=== PATIENT | female | born 1950 | race Caucasian/White ===

== ENCOUNTER 2022-05-25 06:05 | Observation (INO) ==
--- NOTE | 2022-05-03 09:10 | PAT Medication Instructions ---
Medication Instructions Date of Service May 03, 2022 Home Medications amiodarone 200 mg tablet 100 mg PO 3XWK aspirin 81 mg tablet 81 mg PO QAM Hair,Skin and Nails tablet) 1 tab PO QAM nabumetone 750 mg tablet (Relafen) 750 mg PO QAM naratriptan 2.5 mg tablet 2.5 mg PO Q4H PRN Migraine Headache omega-3 fatty acids 1,250 mg PO QAM simvastatin 20 mg tablet (Zocor) 20 mg PO QAM Continue as directed amiodarone 200 mg tablet 100 mg PO 3XWK ASK your surgeon for instructions nabumetone 750 mg tablet (Relafen) 750 mg PO QAM STOP taking 2 weeks before surgery (or as soon as possible if surgery is within 2 weeks) Hair,Skin and Nails tablet) 1 tab PO QAM omega-3 fatty acids 1,250 mg PO QAM Take morning of surgery With a small sip of water, OTHERWISE NOTHING TO EAT OR DRINK AFTER MIDNIGHT: aspirin 81 mg tablet 81 mg PO QAM (continue as normal unless told otherwise by surgeon) naratriptan 2.5 mg tablet 2.5 mg PO Q4H PRN Migraine Headache (if needed) simvastatin 20 mg tablet (Zocor) 20 mg PO QAM Take evening before surgery naratriptan 2.5 mg tablet 2.5 mg PO Q4H PRN Migraine Headache (if needed) Other Notes If you have any questions please call us at [phone] or [phone] or [phone] or [phone]
--- NOTE | 2022-05-05 14:49 | Anesthesiology Consultation ---
Date of Service May 05, 2022 Assessment & Plan (1) Encounter for pre-operative examination: Chart Review Chart Review: Acceptable Risk for Surgery (pending cardio clearance (05/10) with response to preop EKG and PCP clearance (05/18) with response to CXR ) and Patient seen in Pre Admission Testing Awaiting cardio clearance (Dr. Abraham) (05/10/22)- will send optimization note re: bigeminy to cardio along with preop EKG Awaiting PCP clearance (05/18/22) (did send optimization note to PCP re: CXR) Per patient- tolerates Toradol well Per PAT appt on 02/03/22, patient denies any recent travel or large group activi ties. No known Covid positive exposures or Covid related symptoms. No known Covid infection in the past 90 days. Will leave to surgeon's discretion if preop Covid testing needed. Pt is fully vaccinated for Covid. Educated on importance of using Covid precautions one week prior to surgery Teaching & Discussion Pre-Anesthesia Teaching/Discussion Notes: Instructed NPO after midnight before surgery,except medications with 15 cc of water. Medication instructions provided according to the PAT guidelines. History Surgery Operation Date: 05/25/22 08:50 Proposed Procedures p Left Total Knee Arthroplasty - Tree Uribe MD Height/Weight Height: 5 ft 8 in Weight: 75.2 kg Allergies Allergy/AdvReac Type Severity Reaction Status Date / Time acetaminophen [From Percocet] AdvReac Nausea Verified 05/02/22 15:01 oxycodone [From Percocet] AdvReac Nausea Verified 05/02/22 15:01 Medications Home Medications Medication Instructions Recorded Confirmed Last Taken amiodarone 200 mg tablet 100 mg PO 3XWK 05/02/22 05/02/22 Unknown aspirin 81 mg tablet 81 mg PO QAM 05/02/22 05/02/22 Unknown multivitamin with minerals 1 tab PO QAM 05/02/22 05/02/22 Unknown (Hair,Skin and Nails tablet) nabumetone 750 mg tablet (Relafen) 750 mg PO QAM 05/02/22 05/02/22 Unknown naratriptan 2.5 mg tablet 2.5 mg PO Q4H PRN Migraine Headache 05/02/22 05/02/22 Unknown omega-3 fatty acids 1,250 mg PO QAM 05/02/22 05/02/22 Unknown simvastatin 20 mg tablet (Zocor) 20 mg PO QAM 05/02/22 05/02/22 Unknown Past Medical History Medical History History of atrial fibrillation Remote hx 8 years ago (during hospitalization/PE) No known recurrence, Follows with Dr. Abraham q 2 years History of pulmonary embolism 8 years ago (following varicose vein laser treatment) - treated with AC x 1 year HLD (hyperlipidemia) Migraines Osteoarthritis Exercise / Class Metabolic Activity II 4-5 Yardwork/Stairs/Walk up hill (one flight of stairs - no chest pain or SOB ) Past Family History Family History Other No family history of adverse response to anesthesia Past Surgical History Surgical History History of bunionectomy History of cardiac catheterization 2006 > no stents History of colonoscopy History of hammertoe correction x 2 History of sinus surgery History of surgery varicose vein laser treatment History of tonsillectomy Past Anesthesia History No Hx of Anesthesia Complications and No Family Hx of Anesthesia Complications History of PONV No Hx of Motion Sickness and History of PONV (remote one time episode ) Social History Smoking Status: Current every day smoker tobacco type: cigarettes Smoking cigarettes per day: 10-12 per day Do You Dip or Chew Tobacco: No Hx Alcohol Use: No Hx Substance Use: No substance use type: does not use Review of Systems Unknown re: snoring (lives alone) Patient denies chest pain, shortness of breath, dyspnea on exertion, reflux, cough, wheezing, palpitations. No hx of seizures, stroke, AL. No hx of blood transfusions Physical Exam Vital Signs VITALS BP 107/68 P 58 TEMP 98.2 SP02 95% RESP 16 Constitutional no acute distress ENMT Mouth: no TMJ clicking Thyromental Distance: > or= 3.5 Finger Breadths (3.5) Mallampati Class: II Missing molar Neck neck extension not limited Respiratory normal respiratory effort; no respiratory distress Auscultation: lungs clear to auscultation bilaterally; no wheezes Cardiovascular Heart Sounds: no murmur Vessels: no carotid bruit Regularly irregular Musculoskeletal Spine: no pain with cervical ROM Extremities: extremities normal to inspection Psychiatric Orientation: alert Lab Results Anesthesia Preop Results Results Anesthesia Widget: WBC 6.41 K/ul (4.8-10.8) 05/05/22 Hgb 16.2 g/dl (12.0-16.0) H 05/05/22 Hct 46.5 % (34.1-44.9) H 05/05/22 Plt 171 K/uL (130-400) 05/05/22 Na 137 mmol/L (136-145) 05/05/22 K 3.9 mmol/L (3.5-5.1) 05/05/22 Cl 103 mmol/L (98-107) 05/05/22 CO2 29 mmol/L (21-32) 05/05/22 BUN 23 mg/dl (6-23) 05/05/22 Creat 0.84 mg/dl (0.6-1.2) 05/05/22 Glucose Level 85 mg/dl (70-99(Fasting)) 05/05/22 PT 11.0 Seconds (9.0-12.0) 05/05/22 PTT 26.7 Seconds (21.0-31.0) 05/05/22 INR 1.0 (0.9-1.1) 05/05/22 Urine Color Yellow 05/05/22 Urine Appearance Clear (Clear) 05/05/22 Urine pH 5.0 (4.5-7.5) 05/05/22 Urine Specific [place] 1.018 (1.000-1.030) 05/05/22 Urine Protein Negative (Negative) 05/05/22 Urine Glucose (UA) Negative (Negative) 05/05/22 Urine Ketones Negative (Negative) 05/05/22 Urine Blood Negative (Negative) 05/05/22 Urine Nitrite Negative (Negative) 05/05/22 Urine Bilirubin Negative (Negative) 05/05/22 Urine Urobilinogen Negative (Negative) 05/05/22 Urine Leukocyte Esterase Negative (Negative) 05/05/22 Blood Type O Positive 05/05/22 Antibody Screen NEGATIVE 05/05/22 Testing Electrocardiogram Date: 05/05/22 Sinus rhythm with premature atrial complexes in a pattern of bigeminy. Otherwise normal EKG per cardio. Chest X-Ray Date: 05/05/22 FINDINGS: PA and lateral chest radiographs are obtained. No prior studies are available for comparison at the time of dictation. The heart is enlarged noting atherosclerotic calcification of the thoracic aorta. The pulmonary vasculature is noncongestive. Nonspecific interstitial thickening is likely chronic. There is bibasilar scarring/atelectasis. There are ill-defined opacities at the left lung base. Anterior opacities are also suggested on the lateral projection. There is no pneumothorax. The skeletal structures are osteopenic. The bony thorax appears intact. Degenerative changes noted in the spine. IMPRESSION: 1. Cardiomegaly without radiographic evidence of congestive failure. 2. There are ill-defined opacities questioned at the left lung base, with abnormality also suggested on the lateral projection. Although this could represent artifact/superimposed shadows, a chest CT is recommended for further assessment. (Sent optimization note to PCP)
[~2022-05-25 06:05] MED LIST: LR 500ML BOLUS, THEN 15ML/HR IV SCH; LR 60ML/HR IV SCH; ROPIVACAINE 0.5% HCL/PF 150 MG, BUPIVACAINE 0.75% MPF 20 ML, EPINEPHrine 0.15 MG, Ketor... INFIL SCH; TRANEXAMIC ACID 1,000 MG x 1 **For Topical Use TOP SCH; ceFAZolin 2000MG 2,000 MG/15 ML SYR IV SCH
[2022-05-25] MEDS ORDERED: BUPIVACAINE 0.25% 30 ML VIAL ONE (06:37)
[2022-05-25] MEDS ORDERED: DEXAMETHASONE SOD INJ 4 MG/ML VIAL ONE (06:37)
[2022-05-25] MEDS ORDERED: BUPIVACAINE 0.5 % 5 MG/1 ML PF 10ML VIAL ONE (06:37)
[2022-05-25] MEDS ORDERED: EPINEPHrine INJ 1 MG/ML AMP ONE (06:37)
--- NOTE | 2022-05-25 06:40 | History & Physical Bridge Note ---
Date of Service May 25, 2022 History & Physical Bridge Note I have examined the patient, reviewed the History & Physical and in the interval since the performance of the History & Physical I have noted the following changes of clinical significance:consent and site verified. no changes noted
[2022-05-25] MEDS ORDERED: fentaNYL citrate 100 MCG/2 ML VIAL ONE (07:37)
[2022-05-25] MEDS ORDERED: MIDAZOLAM HCL 1 MG/ML 2ML VIAL ONE ×2 (07:37→07:38)
[2022-05-25] MEDS ORDERED: ONDANSETRON INJ 2 MG/ML 2 ML VIAL ONE (07:39)
[2022-05-25] MEDS ORDERED: LIDOCAINE 2% MPF LOCAL 5 ML VIAL INFIL ONE (07:39)
[2022-05-25] MEDS ORDERED: PROPOFOL IV EMULSION 10 MG/ML 20 ML VIAL IV ONE ×2 (07:39→09:21)
[2022-05-25 07:54] LABS: Partial Thromboplastin Time 26.4 Seconds (21.0-31.0); Prothrombin Time 10.9 Seconds (9.0-12.0)
[2022-05-25 08:08] LABS: Appearance Urine Clear (Clear); Bilirubin Urine Negative (Negative); Blood Urine Negative (Negative); Color Urine Yellow; Glucose Urine UA Negative (Negative); Ketones Urine 1+ (Negative); Leukocyte Esterase Urine Negative (Negative); Nitrite Urine Negative (Negative); Protein Urine Negative (Negative); Specific Gravity Urine 1.027 (1.000-1.030); Urobilinogen Urine Negative (Negative)
--- NOTE | 2022-05-25 08:13 | XRay Report ---
XR chest 2V PA/lateral HISTORY: 72 years-old Female preop preoperative exam. No acute chest complaints COMPARISON: Chest CT 05/10/2022 TECHNIQUE: PA and lateral views of the chest FINDINGS: Cardiac silhouette is enlarged. No pneumothorax, pleural effusion, airspace consolidation or overt pu lmonary edema. Suggestion of mild pulmonary emphysema. Bones of the chest appear grossly intact. IMPRESSION: No acute process. ACT 112: Negative or not required by law. The above report was generated using voice recognition software. It may contain grammatical, syntax o r spelling errors. Electronically signed by: Jerod Snow M.D. 05/25/2022 8:11 AM
[2022-05-25] MEDS ORDERED: ONDANSETRON INJ 2 MG/ML 2 ML VIAL IV PRN ×2 (08:34→14:09)
[2022-05-25] MEDS ORDERED: ePHEDrine sulfate 50 MG/ML AMP IV PRN (08:34)
[2022-05-25] MEDS ORDERED: ATROPINE SULFATE 0.1 MG/ML 10ML SYR IV PRN (08:34)
[2022-05-25] MEDS ORDERED: fentaNYL citrate 100 MCG/2 ML VIAL IV PRN (08:34)
[2022-05-25] MEDS ORDERED: ORTHO JOINT ANESTHETIC ONE (08:40)
--- NOTE | 2022-05-25 09:13 | Discharge Summary (DS) ---
DATE OF ADMISSION: 05/25/2022. DATE OF POTENTIAL DISCHARGE: 05/26/2022. CHIEF COMPLAINT: Left knee pain. HISTORY OF PRESENT ILLNESS: A 72-year-old female who was admitted for elective left total knee replacement. She has failed conservative management and is requesting this. She is requesting the use of Pradaxa for DVT prophylaxis based on cost with Xarelto. She does not want Coumadin. To date hospital course has been uneventful. REVIEW OF SYSTEMS: Reveals no chest pain, shortness of breath, fever, chills, nausea, vomiting or headache. She has a cardiac history, but everything is good at this point in time. She just recently saw her magento developer. PAST MEDICAL HISTORY: Remarkable for DJD. MEDICATIONS: Include amiodarone, aspirin, nabumetone, naratriptan and simvastatin. ALLERGIES: None. SOCIAL HISTORY: Reveals light day smoker. X-RAYs left knee look good 2 views. ASSESSMENT: Status post left total knee replacement. Continue care pathway. Discharge to home tomorrow. Follow Cardiology recommendations. DVT prophylaxis with Pradaxa. Job ID: [id number] [facility]
[2022-05-25] MEDS ORDERED: TRANEXAMIC ACID 100 MG/ML 10 ML VIAL IV ONE ×2 (10:29→10:33)
--- NOTE | 2022-05-25 10:34 | Post Operative Brief Note ---
Immediate Post Op Note v1 Date of Surgery May 25, 2022 Pre & Post Diagnosis Operation Date: 05/25/22 08:50 Pre-Op Diagnosis: Left Knee Degenerative Joint Disease Post-Op Diagnosis: Left Knee Degenerative Joint Disease I identified the patient and participated in the time-out.: Yes Procedure Operation Date: 05/25/22 08:50 Actual Procedures p Left Total Knee Arthroplasty(Left) - Tree Uribe MD Surgeon Tree Uribe MD Television News Producer Rusty/Renata Estimated Blood Loss 25 Findings Consistent with Post-Op Diagnosis
--- NOTE | 2022-05-25 10:44 | Operative Report ---
Post Operative Report Pre & Post Diagnosis Operation Date: 05/25/22 08:50 Pre-Op Diagnosis: Left Knee Degenerative Joint Disease Post-Op Diagnosis: Left Knee Degenerative Joint Disease I identified the patient and participated in the time-out.: Yes Procedure Operation Date: 05/25/22 08:50 Actual Procedures p Left Total Knee Arthroplasty(Left) - Tree Uribe MD Surgeon VERO Uribe MD Director [employer] Rusty/Renata COSTA Estimated Blood Loss 25 Findings Consistent with Post-Op Diagnosis see operative report Specimens see operative report Drains none Complications none Disposition Accompanied Patient To Recovery: Yes Indications This 72 year old female presented to the office with complaints of persisting left knee pain. She had tried conservative care measures without improvement. She elected to proceed with surgical intervention after being educated about potential risks and outcomes. Preoperative imaging was obtained. Description of Procedure Patient was administered a spinal anesthetic and then taken to the operating room where she was given sedation. She was prepped and draped in the usual sterile fashion. Please see Dr. Uribe's operative report for specifics of the procedure. I was present for the entire case from initial patient positioning through final wound closure. Assistance was provided in tissue retraction, hemostasis, trial implant placement, final implant placement, and final wound closure. Patient was taken to the recovery room in satisfactory condition. I attest to the content of the Intraoperative Record and any orders documented therein. Any exceptions are noted below.
--- NOTE | 2022-05-25 10:59 | XRay Report ---
XR knee LT 1 or 2V routine CLINICAL HISTORY: S/P L TKA COMPARISON: Left knee radiographs May 05, 2022. FINDINGS: Alignment of the total left knee arthroplasty is anatomic. There is no periprosthetic frac ture or unexpected radiopaque foreign body. There are skin dae. IMPRESSION: Expected findings following total left knee arthroplasty. ACT 112: Negative or not required by law. Electronically signed by: Justen Pascal M.D. 05/25/2022 10:58 AM
--- NOTE | 2022-05-25 11:05 | Progress Notes ---
SUBJECTIVE: Postop check status post left total knee replacement. The patient is comfortable, happy, smiling, and not having any pain. She denies chest pain, shortness of breath, fever, chills, nausea, vomiting, or headache. OBJECTIVE: Vital signs are stable. She is afebrile. On neurovascular check, femoral sciatic nerve is limited by block. Wound dressing clean, dry, and intact. Postoperative x-rays look excellent. ASSESSMENT AND PLAN: Doing well status post left total knee replacement. Continue with care pathway. Discharge home tomorrow with services. Job ID: [id number] [facility]
--- NOTE | 2022-05-25 11:10 | Operative Report (OR) ---
DATE OF PROCEDURE: 05/25/2022 SURGEON: Tree Uribe MD. SOAP TENDER: Dr. Ojeda, II SECOND SOAP TENDER: Nik Yanez PA-C. PREOPERATIVE DIAGNOSIS: Osteoarthritis, lateral compartment valgus, left knee. POSTOPERATIVE DIAGNOSIS: Osteoarthritis, lateral compartment valgus, left knee. OPERATION PERFORMED: Left total knee replacement. PERIOPERATIVE SITUATION: Medically cleared female with intractable left knee pain, has failed conser vative management for several years. At this point in time is requesting surgical treatment with tot al knee replacement. SUMMARY OF IMPLANTS: Size 3 left femur, size 3 mobile bearing tray, size 38 patella, size 3 x 10 mm posterior cruciate substituting insert, 2 bags of [place] G cement. This is a youmag J and J rotating platform. ESTIMATED BLOOD LOSS: 25 mL CRYSTALLOID: Per Anesthesia. PATHOLOGY: Pending on bone. DVT prophylaxis with Pradaxa or equivalent. PERIOPERATIVE SITUATION: Medically cleared female with intractable osteoarthritis of her left knee. At this point in time, wants to proceed with surgical treatment. DESCRIPTION OF PROCEDURE: The patient was appropriately identified, site verified, consent verified. Antibiotics were confirmed as being given. The left lower extremity was prepped and draped in the usual routine fashion. A midline exposure utilized after the tourniquet was inflated to 275 mmHg for a total of 56 minutes. Parapatellar arthrotomy performed. Synovectomy completed, osteophytes resec [place]. The lateral compartment had grade IV disease throughout. The remaining of the knee joint was r elatively healthy. Appropriate releases were performed. Cruciates resected. Tibia was subluxated, menisci resected. Distal femur resected 12 mm, proximal tibia 4 mm, then an additional resection was made. The extension gap was excellent. The femur was sized anywhere between a 4 and a 2.5, so was measured 4 cut 3 with no notching. Flexio n gap was then checked after the tibia was resected as we mentioned roughly to be 6 mm. The flexion and extension gaps were excellent. Posterior capsule was then injected. The box cut was then made f or the femur and a size 3 fit well. The tibia was then broached and reamed to a size 3 with a 10 mm spacer, the knee tracked well, and it was stable in all planes including mid range flexion. Patella was resected leaving 14 mm and then the seating holes made, and the 38 patella trial fit well. The O rthomix was then injected all about the knee. All trial implants were then removed. The knee was ir rigated with Pulsavac and Betadine and then the permanent cemented into position tibia, femur, and pa tella in that order, at 12 minutes, the tourniquet deflated, at 14 minutes, the knee was flexed. The re was no cement removal required. The wound was irrigated one final time with Pulsavac Betadine. T he permanent liner seated, the knee reduced and closed at 40 degrees of flexion with #2 Vicryl, 2-0 V icryl, and stainless steel clips. Appropriate dressing applied. The patient was transferred to [facility] room in satisfactory condition, having tolerated the procedure well. Job ID: [id number]
--- NOTE | 2022-05-25 11:29 | Anesthesiology Progress Note ---
Date of Service May 25, 2022 Anesthesia Post Procedure Vital Signs Vital Signs: Temp Pulse Resp BP Pulse Ox O2 Del Method O2 Flow Rate 05/25/22 11:10 36.4 C L 56 L 16 115/68 96 Nasal Cannula 2 05/25/22 11:00 56 L 18 120/83 96 Oxymask 5 05/25/22 10:50 56 L 18 126/55 L 98 Oxymask 5 05/25/22 10:40 36.0 C L 57 L 18 115/66 98 Oxymask 5 05/25/22 07:00 36.6 C 69 20 117/79 98 Room Air Transfer of Care Handoff Completed per policy Notes Mental Status: alert / awake / arousable Patient Amnestic to Procedure: Yes Nausea / Vomiting: adequately controlled Pain: adequately controlled Airway Patency, RR, SpO2: stable & adequate BP & HR: stable & adequate Hydration State: stable & adequate Neuraxial Anesthesia: was administered and sensory block is resolving Anesthetic Complications: no major complications apparent and Pt Satisfied with anesthetic care
--- NOTE | 2022-05-25 13:11 | Progress Notes ---
Postop check status post left total knee replacement. The patient is doing well. Her neurologic fun ction is recovering nicely from her spinal. Wound dressing clean, dry and intact. Postop x-rays loo k excellent. Continue care pathway. Job ID: [id number]
[2022-05-25] MEDS ORDERED: NALOXONE HCL 0.4 MG/1 ML VIAL/CARP IV PRN (14:09)
[2022-05-25] MEDS ORDERED: ALUMINUM/MAGNESIUM SUSP 30 ML UDC PO PRN (14:09)
[2022-05-25] MEDS ORDERED: HYDROmorphone INJ 0.5 MG/0.5 ML SYR IV PRN (14:09)
[2022-05-25] MEDS ORDERED: diphenhydrAMINE 50 MG/ML VIAL IV PRN (14:09)
[2022-05-25] MEDS ORDERED: bisacodyL 10 MG SUPP PR PRN (14:09)
[2022-05-25] MEDS ORDERED: METOCLOPRAMIDE HCL INJ 5 MG/ML 2 ML VIAL IV PRN (14:09)
[2022-05-25] MEDS ORDERED: oxyCODONE HCL IR 5 MG TAB (IMMEDIATE RELEASE) PO PRN (14:09)
[2022-05-25] MEDS ORDERED: SODIUM CHLORIDE 0.9% 1000ML 1,000 ML IV SCH (14:09)
[2022-05-25] MEDS ORDERED: MAGNESIUM HYDROXIDE SUSP 30 ML UDC PO PRN (14:09)
--- NOTE | 2022-05-25 14:20 | Electrocardiogram Report ---
Test Reason : Blood Pressure : / mmHG Vent. Rate : 064 BPM Atrial Rate : 064 BPM P-R Int : 142 ms QRS Dur : 080 ms QT Int : 420 ms P-R-T Axes : 070 076 040 degrees QTc Int : 433 ms Sinus rhythm with Premature supraventricular complexes Possible Left atrial enlargement Borderline ECG When compared with ECG of 05-MAY-2022 15:09, No significant change was found Confirmed by Fernando Roberts ([id number]) on 05/25/2022 2:20:43 PM Referred By: Tree Uribe Confirmed By:Fernando Roberts
[2022-05-25] MEDS ORDERED: AMIODARONE 200 MG TAB PO SCH (14:45)
[2022-05-25] MEDS: ACETAMINOPHEN 500 MG TAB PO SCH ×2 (15:52→21:14)
[2022-05-25] MEDS: KETOROLAC TROMETHAMINE 15 MG/ML VIAL IV SCH ×2 (15:53→21:16)
[2022-05-25] MEDS: ceFAZolin 2000MG 2,000 MG/15 ML SYR IV SCH (16:48)
[2022-05-25] MEDS: FERROUS GLUCONATE 324 MG TAB PO SCH (16:55)
[2022-05-25] MEDS: ASCORBIC ACID 500 MG TAB PO SCH (16:55)
[2022-05-25] MEDS: DOCUSATE SODIUM 100 MG CAP PO SCH (19:29)
[2022-05-25] MEDS ORDERED: SENNA 8.6 MG TAB PO SCH (21:00)
[2022-05-26] MEDS: ceFAZolin 2000MG 2,000 MG/15 ML SYR IV SCH (00:14)
[2022-05-26] MEDS: KETOROLAC TROMETHAMINE 15 MG/ML VIAL IV SCH ×2 (04:13→09:46)
[2022-05-26] MEDS: ACETAMINOPHEN 500 MG TAB PO SCH ×2 (05:07→13:32)
--- NOTE | 2022-05-26 07:15 | Progress Notes ---
SUBJECTIVE: Postop check status post left total knee replacement postop day #1. The patient is awak e and alert. She denies any chest pain, shortness of breath, fever, chills, nausea, vomiting, or hea dache. OBJECTIVE: Vital signs are stable. She is afebrile. On neurovascular check, femoral sciatic nerve is normal. Calve is nontender. Wound dressing clean, dry, and intact. LABORATORY DATA: A.m. labs are pending. ASSESSMENT AND PLAN: Doing well. Discharged to home today after PT/OT. She is requesting Xarelto f or DVT prophylaxis and we will start that today. Job ID: [id number]
[2022-05-26] MEDS ORDERED: dexAMETHasone 10 MG in SYRINGE 0 ML IV SCH (08:00)
[2022-05-26 08:07] LABS: Hematocrit (blood only) 43.3 % (34.1-44.9); Hemoglobin 14.6 g/dl (12.0-16.0); Mean Corpuscular Hemoglobin 31.9 pg (25.0-34.0); Mean Corpuscular Hgb Conc 33.7 g/dL (32.0-36.0); Mean Corpuscular Volume 94.5 fL (80.0-100.0); Mean Platelet Volume 11.4 fL (9.4-12.3); Platelet Count 147 K/uL (130-400); RDW Standard Deviation 45.1 fL (36.4-46.3); Red Blood Count 4.58 M/uL (3.93-5.22); White Blood Count 11.78 K/ul (4.8-10.8)
[2022-05-26 08:15] LABS: INR 1.1 (0.9-1.1); Prothrombin Time 11.2 Seconds (9.0-12.0)
[2022-05-26] MEDS: DOCUSATE SODIUM 100 MG CAP PO SCH (08:44)
[2022-05-26] MEDS: ASCORBIC ACID 500 MG TAB PO SCH (08:44)
[2022-05-26] MEDS: FERROUS GLUCONATE 324 MG TAB PO SCH (08:44)
[2022-05-26 08:48] LABS: BUN Creatinine Ratio 39.1 (10-20); Calcium 9.3 mg/dl (8.5-10.1); Creatinine Clr Calc Pharmacy 82.5 ml/min; Est GFR (African American) 104.8 ml/min; Est GFR (Non-African American) 90.4 ml/min; Potassium 4.9 mmol/L (3.5-5.1)
[2022-05-26] MEDS ORDERED: SIMVASTATIN 20 MG TAB PO SCH (09:00)
[2022-05-26] MEDS ORDERED: MULTIVITAMIN TAB PO SCH (09:00)
[2022-05-26] MEDS ORDERED: ASPIRIN 81 MG ECTAB PO SCH (09:00)
[2022-05-26] MEDS ORDERED: RIVAROXABAN 10 MG TABLET PO SCH (09:00)
--- NOTE | 2022-05-26 11:48 | Orthopedic Progress Note ---
Date of Service May 26, 2022 Assessment & Plan (1) S/P total knee replacement using cement: Plan: Patient was educated regarding today's findings. Conservative care measures were discussed. New bulky dressings were applied by me. DESMOND hose was also applied. She will attend PT/OT today and then can be discharged to home. Written discharge instructions have been provided. Prescriptions for [place], Zofran, and Xarelto have been sent to her pharmacy. She will use the knee immobilizer today and tomorrow and discontinue it on Monday. Follow-up in the office in 2 weeks as scheduled for staple removal. Call the office with any other concerns. Admission and Anticipated Discharge Date Admission Date: May 25, 2022 Subjective Patient is seen in her room this morning. She currently has no complaints. She states she has very little pain as long as she is taking her Toradol. She has not performed PT or OT at this point. She states she was up with nursing assistance last evening and walked around in her room several times. She anticipates going home today and will start home health tomorrow. She denies any chest pain, shortness of breath, nausea, vomiting, or abdominal pain. She does have discomfort in her proximal thigh at the area of her surgical tourniquet. No other complaints. Review of Systems Review of Systems: Unchanged from yesterday. Physical Exam Physical Exam: General: Well-developed, well-nourished, elderly female, in no acute distress. Laying in bed. Alert and oriented. Conversive. Skin: Warm dry with good turgor. No rashes. Postsurgical dressings are in place. Upon removal, she has expected postoperative edema and ecchymosis of the left knee. Melody are in place. Wound edges are well approximated. She has no active bleeding. Surgical dressings did have a scant amount of dried blood on the inner dressings. Musculoskeletal: Patient has intact motor function to the hip, knee, ankle, and toes. She is able to perform straight leg raise. Full terminal extension. Flexion to around 60 degrees. Neurologic: Gross sensation is intact across the left leg by soft touch. Peripheral pulses are 2+. Results & Data ([facility]) Vital Signs (Past 12 Hours) Vital Signs Temp Pulse Resp BP Pulse Ox Pulse Ox O2 Del Method 05/26/22 10:50 96 05/26/22 10:14 62 Room Air 05/26/22 07:27 36.8 C 52 L 18 103/62 96 Nasal Cannula 05/26/22 05:00 36.7 C 05/26/22 04:07 36.4 C L 62 18 108/65 92 Nasal Cannula 05/26/22 00:00 97 Nasal Cannula O2 Flow Rate 05/26/22 10:50 05/26/22 10:14 05/26/22 07:27 05/26/22 05:00 05/26/22 04:07 2 05/26/22 00:00 2 Laboratory Results CBC obtained today shows a white count of 11.78. H&H of 14.6 and 43.3. INR 1.1. Renal profile is unremarkable.
== END 2022-05-26 15:40 | disposition home health service (06) ==
LOC: ASU 06:05 → 3E 06:05